=== PATIENT | male | born 1985 | race American Indian/Alaskan Native ===

== ENCOUNTER 2019-03-25 12:26 | Emergency (ER) | payer SELFPAY ==
[2019-03-25 13:08] VITALS: BP 115/62
--- NOTE | 2019-03-25 13:08 | Event Note ---
ED Screening Note Date of service: 03/25/19 Time: 13:06 ED Screening Note: This is a 34 y.o. M. that presents to the ER with a rash on right hip and right thigh for 4 days. Reports rash as painful and pruritus. This initial assessment/diagnostic orders/clinical plan/treatment(s) is/are subject to change based on patients health status, clinical progression and re- assessment by fellow clinical providers in the ED. Further treatment and workup at subsequent clinical providers discretion. Patient/guardian urged not to elope from the ED as their condition may be serious if not clinically assessed and managed. Initial orders include: ACC for further evaluation.
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
== END 2019-03-25 14:20 | disposition left against medical advice (07) ==
LOC: ED 12:26
DX: R21 Rash and other nonspecific skin eruption (principal)
CPT/HCPCS: 99281